=== PATIENT | female | born 1990 | race Caucasian/White ===

== ENCOUNTER → 2017-07-15 | Outpatient (CLI) | payer BC | END | disposition home or self-care (01) | LOC: C.LAB1850 12:55 | PROVIDERS: ATTEND Obstetrics & Gynecology | DX: Z34.02 Encounter for supervision of normal first pregnancy, second trimester (principal); N76.0 Acute vaginitis ==

== ENCOUNTER → 2017-08-26 | Outpatient (CLI) | payer BC, OTHER ==
[2017-08-26 12:28] LABS: HEMATOCRIT 33.2 % (37-47); HEMOGLOBIN 11.5 g/dL (12.0-16.0)
== END | disposition home or self-care (01) ==
LOC: C.LAB1850 11:12
PROVIDERS: ATTEND Obstetrics & Gynecology
DX: Z34.03 Encounter for supervision of normal first pregnancy, third trimester (principal)

== ENCOUNTER 2017-10-07 11:10 | Outpatient (CLI) | payer OTHER ==
[2017-10-07 11:41] LABS: BASO % 0.2 %; BASO ABS # 0.02 K/uL (0-0.2); EOS % 1.9 %; EOS ABS # 0.18 K/uL (0-0.5); HEMATOCRIT 34.1 % (37-47); IG# 0.09 K/uL (0.00-0.02); LYMPH % 18.9 %; LYMPH ABS # 1.77 K/uL (1.2-3.4); MEAN CELL VOLUME 85.7 fL (80-100); MEAN CORPUSCULAR HEMOGLOBIN 30.2 pg (25-34); MEAN PLATELET VOLUME 9.8 fL (7.4-10.4); MONO ABS # 0.66 K/uL (0.11-0.59); NEUT ABS # 6.66 K/uL (1.4-6.5); PLATELET COUNT 173 K/uL (130-400); RED CELL DISTRIBUTION WIDTH CV 12.6 % (11.5-14.5); RED CELL DISTRIBUTION WIDTH SD 39.4 fL (36.4-46.3); WHITE BLOOD COUNT 9.38 K/uL (4.8-10.8)
[2017-10-07 11:47] LABS: MEAN CORPUSCULAR HGB CONC 35.2 g/dl (32-36)
[2017-10-07 12:08] LABS: ALBUMIN 2.6 gm/dl (3.4-5.0); ALT/SGPT 18 U/L (12-78); AST/SGOT 19 U/L (15-37); URIC ACID 4.7 mg/dl (2.6-7.2)
[2017-10-07 12:11] LABS: ALKALINE PHOSPHATASE 128 U/L (45-117); TOTAL PROTEIN 6.6 gm/dl (6.4-8.2)
[2017-10-07 12:53] LABS: INR < 0.8 (0.9-1.1)
== END 2017-10-07 13:37 | disposition home or self-care (01) ==
LOC: C.OPB 11:10 → C.LD 11:11 → C.OPB 13:37
PROVIDERS: ATTEND Obstetrics & Gynecology
DX: O99.89 Other specified diseases and conditions complicating pregnancy, childbirth and the puerperium (principal); R03.0 Elevated blood-pressure reading, without diagnosis of hypertension; O12.13 Gestational proteinuria, third trimester; Z3A.34 34 weeks gestation of pregnancy

== ENCOUNTER → 2017-10-09 | Outpatient (CLI) | payer OTHER ==
[2017-10-09 11:03] LABS: HEMATOCRIT 34.4 % (37-47); HEMOGLOBIN 12.1 g/dL (12.0-16.0); MEAN CELL VOLUME 86.2 fL (80-100); MEAN CORPUSCULAR HEMOGLOBIN 30.3 pg (25-34); MEAN CORPUSCULAR HGB CONC 35.2 g/dl (32-36); MEAN PLATELET VOLUME 9.9 fL (7.4-10.4); PLATELET COUNT 161 K/uL (130-400); RED CELL DISTRIBUTION WIDTH CV 12.7 % (11.5-14.5); RED CELL DISTRIBUTION WIDTH SD 40.4 fL (36.4-46.3); WHITE BLOOD COUNT 8.01 K/uL (4.8-10.8)
[2017-10-09 11:25] LABS: ALBUMIN 2.5 gm/dl (3.4-5.0); ALKALINE PHOSPHATASE 129 U/L (45-117); ALT/SGPT 19 U/L (12-78); AST/SGOT 18 U/L (15-37); TOTAL PROTEIN 6.6 gm/dl (6.4-8.2); URIC ACID 4.8 mg/dl (2.6-7.2)
== END | disposition home or self-care (01) ==
LOC: C.LAB 10:34
PROVIDERS: ATTEND Obstetrics & Gynecology
DX: R03.0 Elevated blood-pressure reading, without diagnosis of hypertension (principal)

== ENCOUNTER 2017-10-18 14:58 | Inpatient (IN) | payer OTHER ==
[~2017-10-18] VITALS: Ht 165.1 cm; Wt 111.0 kg
[2017-10-18] MEDS ORDERED: LACTATED RINGER'S 1000ML 1,000 ML IV PRN (15:36)
[2017-10-18] MEDS ORDERED: MAGNESIUM SULFATE 40GM / WTR 1,000 ML IV ONE (15:40)
[2017-10-18] MEDS ORDERED: LACTATED RINGER'S 1000ML 500 ML IV PRN ×2 (15:41→18:57)
[2017-10-18] MEDS ORDERED: PATIENT'S ALLERGY INFO NEEDS ENTERED SCH (15:45)
[2017-10-18] MEDS ORDERED: PENICILLIN G POTASSIUM IV 6 MU in DEXTROSE 5% 250ML 250 ML IV ONE (15:45)
[2017-10-18] MEDS ORDERED: MAGNESIUM SULFATE 4GM / WTR 4 GM BAG ONE (16:27)
[2017-10-18 16:30] LABS: HEMATOCRIT 32.6 % (37-47); HEMOGLOBIN 11.8 g/dL (12.0-16.0); MEAN CELL VOLUME 84.2 fL (80-100); MEAN CORPUSCULAR HEMOGLOBIN 30.5 pg (25-34); MEAN CORPUSCULAR HGB CONC 36.2 g/dl (32-36); RED CELL DISTRIBUTION WIDTH CV 12.7 % (11.5-14.5); WHITE BLOOD COUNT 9.15 K/uL (4.8-10.8)
[2017-10-18 16:31] LABS: MEAN PLATELET VOLUME 10.4 fL (7.4-10.4); PLATELET COUNT 89 K/uL (130-400)
[2017-10-18 16:34] LABS: INR 0.8 (0.9-1.1); PTT PATIENT 22.2 SECONDS (21.0-31.0)
[2017-10-18 16:35] LABS: ALT/SGPT 74 U/L (12-78); AST/SGOT 56 U/L (15-37); CREATININE 0.61 mg/dl (0.60-1.20)
[2017-10-18] MEDS: OXYTOCIN 30 UNITS/500ML NSS IV PRN (16:42)
[2017-10-18] MEDS: LACTATED RINGER'S 1000ML 1,000 ML IV SCH ×2 (16:43→21:46)
[2017-10-18 16:58] LABS: BASO % 0.1 %; BASO ABS # 0.01 K/uL (0-0.2); EOS % 1.6 %; EOS ABS # 0.15 K/uL (0-0.5); IG# 0.08 K/uL (0.00-0.02); LYMPH % 13.3 %; LYMPH ABS # 1.22 K/uL (1.2-3.4); MONO % 8.5 %; MONO ABS # 0.78 K/uL (0.11-0.59); NEUT % 75.6 %; NEUT ABS # 6.91 K/uL (1.4-6.5)
[2017-10-18] MEDS ORDERED: BETAMETH SOD PHOS/ACETATE IA 6 MG/ML IM ONE (17:00)
[2017-10-18 17:29] VITALS: Ht 165.1 cm; Wt 111.0 kg
[2017-10-18] MEDS ORDERED: PRENTAB26 PO (17:31)
[2017-10-18] MEDS ORDERED: BUPIVACAINE 0.25% 30 ML VIAL ONE (18:05)
[2017-10-18] MEDS ORDERED: EpHEDrine SULFATE INJ 50 MG/ML AMP ONE (18:05)
[2017-10-18] MEDS ORDERED: FENTANYL 2MCG/ML ROPIV 1.25MG/ML 100ML BAG ONE (18:06)
[2017-10-18] MEDS ORDERED: FENTANYL CITRATE INJ 50 MCG/1 ML 2 ML VIAL ONE (18:06)
[2017-10-18] MEDS ORDERED: NALOXONE HCL INJ 1 MG in SODIUM CHLORIDE 0.9% 1000ML 1,000 ML IV PRN (18:57)
[2017-10-18] MEDS ORDERED: ONDANSETRON INJ 2 MG/ML 2 ML VIAL IV PRN (19:00)
[2017-10-18] MEDS ORDERED: EpHEDrine SULFATE INJ 50 MG/ML AMP IV PRN (19:00)
[2017-10-18] MEDS ORDERED: NALBUPHINE HCL INJ 10 MG/ML AMP IV PRN (19:00)
[2017-10-18] MEDS ORDERED: DiphenhydrAMINE HCL 50 MG/ML VIAL IV PRN (19:00)
[2017-10-18] MEDS ORDERED: NALOXONE HCL INJ 0.4 MG/1 ML VIAL/CARP IV PRN (19:00)
[2017-10-18] MEDS: FENTANYL 2MCG/ML ROPIV 1.25MG/ML 100ML BAG EPI PRN (19:12)
[2017-10-18 20:29] LABS: PTT PATIENT 22.7 SECONDS (21.0-31.0)
[2017-10-18 20:34] LABS: PLATELET COUNT 89 K/uL (130-400)
[2017-10-18 20:41] LABS: INR 0.8 (0.9-1.1)
[2017-10-18] MEDS: PENICILLIN G POTASSIUM IV 3 MU in DEXTROSE 5% 100ML 100 ML IV PRN (22:48)
[2017-10-19 00:51] LABS: HEMATOCRIT 33.8 % (37-47); MEAN CELL VOLUME 84.9 fL (80-100); MEAN CORPUSCULAR HEMOGLOBIN 30.2 pg (25-34); RED CELL DISTRIBUTION WIDTH CV 12.8 % (11.5-14.5); RED CELL DISTRIBUTION WIDTH SD 39.2 fL (36.4-46.3); WHITE BLOOD COUNT 11.99 K/uL (4.8-10.8)
[2017-10-19 00:57] LABS: PTT PATIENT 23.1 SECONDS (21.0-31.0)
[2017-10-19 01:04] LABS: INR 0.8 (0.9-1.1)
[2017-10-19 01:10] LABS: MEAN CORPUSCULAR HGB CONC 35.5 g/dl (32-36); MEAN PLATELET VOLUME 9.9 fL (7.4-10.4); PLATELET COUNT 96 K/uL (130-400)
[2017-10-19 01:18] LABS: ALT/SGPT 66 U/L (12-78); AST/SGOT 41 U/L (15-37)
[2017-10-19] MEDS: FENTANYL 2MCG/ML ROPIV 1.25MG/ML 100ML BAG EPI PRN ×4 (02:34→09:48)
[2017-10-19] MEDS: PENICILLIN G POTASSIUM IV 3 MU in DEXTROSE 5% 100ML 100 ML IV PRN ×3 (02:35→10:22)
[2017-10-19 06:26] LABS: HEMATOCRIT 32.9 % (37-47); HEMOGLOBIN 11.7 g/dL (12.0-16.0); MEAN CELL VOLUME 84.8 fL (80-100); MEAN CORPUSCULAR HEMOGLOBIN 30.2 pg (25-34); MEAN PLATELET VOLUME 10.3 fL (7.4-10.4); PLATELET COUNT 100 K/uL (130-400); RED CELL DISTRIBUTION WIDTH CV 12.9 % (11.5-14.5); RED CELL DISTRIBUTION WIDTH SD 39.4 fL (36.4-46.3); WHITE BLOOD COUNT 13.03 K/uL (4.8-10.8)
[2017-10-19 06:28] LABS: MEAN CORPUSCULAR HGB CONC 35.6 g/dl (32-36)
[2017-10-19] MEDS: LACTATED RINGER'S 1000ML 1,000 ML IV SCH (09:17)
[2017-10-19] MEDS ORDERED: CARBOPROST TROMETHAMINE 250 MCG/ML AMP ONE (11:38)
[2017-10-19] MEDS: OXYTOCIN 30 UNITS/500ML NSS IV PRN (11:53)
[2017-10-19] MEDS ORDERED: SUPERCREAM 0.870 % 15GM JAR EXT PRN (12:15)
[2017-10-19] MEDS ORDERED: OXYTOCIN 30 UNITS/500ML NSS IV PRN (12:15)
[2017-10-19] MEDS ORDERED: DIPHTHERIA/TETANUS/PERTUSSIS 0.5 ML SYR/VIAL IM. ONE ×2 (12:15→20:30)
[2017-10-19] MEDS ORDERED: OXYCODONE/ACETAMINOPHEN 5-325 TAB PO PRN (12:15)
[2017-10-19] MEDS ORDERED: CARBOPROST TROMETHAMINE 250 MCG/ML AMP IM ONE (12:15)
[2017-10-19] MEDS ORDERED: ACETAMINOPHEN 325 MG TAB PO PRN (12:15)
[2017-10-19] MEDS ORDERED: BENZOCAINE 20% AER SPR 82.5 GM CAN EXT PRN (12:15)
[2017-10-19] MEDS ORDERED: HYDROCORTISONE ACETATE 25 MG SUPP PR PRN (12:15)
[2017-10-19] MEDS ORDERED: LANOLIN OINT EXT PRN (12:15)
[2017-10-19 12:42] LABS: HEMATOCRIT 31.3 % (37-47); HEMOGLOBIN 11.2 g/dL (12.0-16.0); MEAN CELL VOLUME 84.8 fL (80-100); MEAN CORPUSCULAR HEMOGLOBIN 30.4 pg (25-34); MEAN CORPUSCULAR HGB CONC 35.8 g/dl (32-36); MEAN PLATELET VOLUME 10.1 fL (7.4-10.4); PLATELET COUNT 104 K/uL (130-400); RED CELL DISTRIBUTION WIDTH CV 12.8 % (11.5-14.5); RED CELL DISTRIBUTION WIDTH SD 39.4 fL (36.4-46.3); WHITE BLOOD COUNT 15.79 K/uL (4.8-10.8)
[2017-10-19 13:02] LABS: ALBUMIN 2.4 gm/dl (3.4-5.0); CALCIUM 6.9 mg/dl (8.5-10.1); CREATININE 0.58 mg/dl (0.60-1.20); POTASSIUM 3.7 mmol/L (3.5-5.1)
[2017-10-19 13:06] LABS: TOTAL PROTEIN 6.6 gm/dl (6.4-8.2)
[2017-10-19] MEDS ORDERED: MAGNESIUM SULFATE 40GM / WTR 1,000 ML IV SCH (14:00)
--- NOTE | 2017-10-19 14:01 | Anesthesia Procedure Note ---
Anesthesia Epidural Removal Nt Date & Time October 19, 2017 at 14:01 Vital Signs Pain Intensity: 5.0 Notes Mental Status: alert / awake / arousable, participated in evaluation Nausea / Vomiting: adequately controlled Pain: adequately controlled Airway Patency, RR, SpO2: stable & adequate BP & HR: stable & adequate Hydration State: stable & adequate Neuraxial Anesthesia: was administered, sensory block is resolving Anesthetic Complications: no major complications apparent, pt satisfied with anesthetic care Epidural: removed without complications, with tip intact Notes: Platelet count 104 prior to pulling epidural
--- NOTE | 2017-10-19 14:57 | DELIVERY SUMMARY ---
DATE OF OPERATION: 10/18/2017 PREOPERATIVE DIAGNOSES: 1. Intrauterine at 35 and 6/7th weeks. 2. Preeclampsia with severe features. 3. Unfavorable cervix. POSTOPERATIVE DIAGNOSES: 1. Intrauterine at 35 and 6/7th weeks. 2. Preeclampsia with severe features. 3. Unfavorable cervix. 4. Nonreassuring heart testing. 5. Probable placental abruption. PROCEDURES: 1. Hobson bulb for cervical ripening. 2. Pitocin augmentation. 4. Epidural anesthesia. 4. Vacuum-assisted vaginal delivery. 5. Right labial laceration with repair. 6. Magnesium sulfate for seizure prophylaxis. SURGEON: Leonie Bradford MD ANESTHESIA: Epidural. ESTIMATED BLOOD LOSS: During delivery itself 400 mL. PROCEDURE IN DETAIL: The patient presented to the office where she was seen and followed for preeclampsia. She had an induction scheduled for 10/27/2017, but had labs done on the day and found to have platelets less than 100,000 and a slight bump in one of her liver functions. She was asymptomatic and testing was good. Given this change though she qualified as preeclampsia with severe features, a decision was made to proceed with induction. A Hobson catheter was placed for cervical ripening and Pitocin augmentation was initiated. Initially, platelets were in the 80,000s, but then progressed up to 100,000, at 89,000 anesthesia was okay with placing an epidural, which was done. In the morning when I took over for the patient, she had last been checked at 2 a.m. and was found to be 5 cm dilated and 80% effaced. The baby was still high. When I checked her, she was at stretchy 8 and I performed amniotomy and guided the baby's head into the pelvis and onto the cervix. Throughout labor since about 2 a.m., the patient had had some heavier bleeding, a little bit more than what normal bloody show would entail. However, the fetus remained category 1. The patient had been started on magnesium sulfate prophylaxis and the variability was minimal to moderate, but was still having spontaneous accels. After breaking the water, the heart tones remained with a baseline of 130, but the baby started to have some decelerations that at times looked early or variable, but at other times had a concern for a late component. The variability remained minimal to moderate and the baby did have a scalp stim on vaginal exam. The patient then did progress with Pitocin at a maximum of 19 to anterior lip and +1. Once the fetus got to anterior lip and +1, we continued to have variable/potentially late decelerations and the decision was made to recheck the patient and try to reduce the lip and push the baby out. when I rechecked the patient, she was complete complete and +1 to +2 station. She was instructed in pushing. The rubber mixer was called and anesthesia was also on the floor in case the fetus did not tolerate pushing well or she made no progress with the pushing. The patient initiated pushing with very good effort and brought the baby from +2 to +3 station to +4 to +5 station. This was over the phase of the about 3 contraction. Unfortunately, the fetus did not have good recovery in between contractions and started to remain in the 60s to 70s. I made a decision since we were at +4 and TREY to proceed with a vacuum outlet assist. I consented the patient and her verbally for this instructing them that there was a possibility of scalp injury with the vacuum and possible injury to the maternal perineum. However, we were so close to vaginal delivery, I thought that we would have a more rapid delivery via vacuum-assist and trying to take the patient back to the room. Over the next contraction, the vacuum was applied and popped off x1. The pressure was no greater than 40 mmHg. During that same contraction, the vacuum was applied again and with a pressure no greater than 40 mmHg, the vertex was delivered initially in TREY position and then restituted to the ROP position. A tight nuchal cord was discovered that clamped and cut on the perineum and the rest of the baby was then delivered without difficulty. The infant was immediately taken over to the baby warmer where nursing and the rubber mixer, Dr. Forrest, was in attendance and waiting for the baby for resuscitation. Please see their notes for resuscitation. Apgars 2, 7, and 8. The placental was delivered with fundal massage and gentle traction into the vagina when I felt the cord starting to tear and therefore, I reached my hand into the vagina, grasped the placenta and delivered the rest of it. On examination of the placenta, it appeared to be intact, however, there was a large clot delivered coincidentally with the placenta. I suspect that the heavier bleeding that she had had through delivery and this clot represented of an abruption that occurred during labor. Placenta was sent for exam. Hemostasis was obtained with dilute Pitocin, fundal massage, and IM Hemabate. A right labial laceration was repaired with several interrupted sutures of 4-0 Vicryl. Mother was doing well at the end of the delivery. Blood pressure 140/77, pulse in the mid 90s. Baby was taken to the nursery for evaluation and treatment. I attest to the content of the Intraoperative Record and any orders documented therein. Any exceptions are noted below. MTDD
[2017-10-19] MEDS: IBUPROFEN 600 MG TAB PO PRN ×2 (15:44→23:25)
[2017-10-20] VITALS (7 sets, daily range): BP systolic 125–149; BP diastolic 80–89; PULSE 70–89; TEMP 36.6–37.4; O2SAT 97–98
[2017-10-20 06:24] LABS: HEMATOCRIT 27.3 % (37-47); HEMOGLOBIN 9.6 g/dL (12.0-16.0); MEAN CELL VOLUME 85.8 fL (80-100); MEAN CORPUSCULAR HEMOGLOBIN 30.2 pg (25-34); MEAN CORPUSCULAR HGB CONC 35.2 g/dl (32-36); MEAN PLATELET VOLUME 9.7 fL (7.4-10.4); PLATELET COUNT 105 K/uL (130-400); RED CELL DISTRIBUTION WIDTH SD 40.7 fL (36.4-46.3)
--- NOTE | 2017-10-20 06:57 | Progress Note ---
Subjective October 20, 2017. Subjective conversation w/ patient Ambulation: ambulating normally (catheter removed this AM - has not ambulated much as yet) Voiding: no voiding problems Diet Tolerance: Regular Diet Lochia: Moderate Feeding Type: Breast Feeding Pain: 2/10 cramping pain after Review of Systems Constitutional: No fever, No chills Respiratory: No cough Cardiac: No chest pain Abdomen: No nausea, No vomiting Objective Vital Signs Date Time Temp Pulse Resp B/P (MAP) Pulse Ox O2 Delivery O2 Flow Rate FiO2 10/20/17 04:15 37.1 83 18 141/82 (101) 10/20/17 00:05 98 Room Air 10/20/17 00:05 36.6 89 18 125/89 (101) 98 Room Air Physical Exam General Appearance: WELL-APPEARING, WD/WN, NO APPARENT DISTRESS Respiratory/Chest: lungs clear, normal breath sounds Cardiovascular: regular rate, rhythm Abdomen: soft Fundus: Firm, Non-Tender, Relation to Umbilicus (1 below) Extremities: no calf tenderness, + pedal edema Laboratory Results Last 24 Hours Test 10/19/17 11:28 10/19/17 12:22 10/20/17 05:55 Cord Arterial Blood pH 7.23 Cord Arterial Blood PCO2 58 mmHg Cord Arterial Blood PO2 20 mmHg Cord Arterial Blood HCO3 24 mmol/L Cord Arterial Bld Oxygen Saturation < 60.0 % Cord Arterial Blood Base Excess -5.0 mEq/L Cord Venous Blood pH 7.24 Cord Venous Blood PCO2 57 mmHg Cord Venous Blood PO2 17 mmHg Cord Venous Blood HCO3 24 mmol/L Cord Venous Blood Oxygen Saturation < 60.0 % Cord Venous Blood Base Excess -4.9 mEq/L White Blood Count 15.79 K/uL 12.60 K/uL Red Blood Count 3.69 M/uL 3.18 M/uL Hemoglobin 11.2 g/dL 9.6 g/dL Hematocrit 31.3 % 27.3 % Mean Corpuscular Volume 84.8 fL 85.8 fL Mean Corpuscular Hemoglobin 30.4 pg 30.2 pg Mean Corpuscular Hemoglobin Concent 35.8 g/dl 35.2 g/dl RDW Standard Deviation 39.4 fL 40.7 fL RDW Coefficient of Variation 12.8 % 13.0 % Platelet Count 104 K/uL 105 K/uL Mean Platelet Volume 10.1 fL 9.7 fL Sodium Level 132 mmol/L Potassium Level 3.7 mmol/L Chloride Level 103 mmol/L Carbon Dioxide Level 20 mmol/L Anion Gap 9.0 mmol/L Blood Urea Nitrogen 10 mg/dl Creatinine 0.58 mg/dl Est Creatinine Clear Calc Drug Dose 182.4 ml/min Estimated GFR () 147.4 Estimated GFR (Non- 127.2 BUN/Creatinine Ratio 17.5 Random Glucose 97 mg/dl Calcium Level 6.9 mg/dl Total Bilirubin 0.3 mg/dl Aspartate Amino Transf (AST/SGOT) 31 U/L Alanine Aminotransferase (ALT/SGPT) 53 U/L Alkaline Phosphatase 152 U/L Total Protein 6.6 gm/dl Albumin 2.4 gm/dl Globulin 4.2 gm/dl Albumin/Globulin Ratio 0.6 Assessment and Plan Post- Day#: 1 Continue Routine Care: 27F s/p induced vaginal delivery w/vacuum for pre-eclampsia with severe features day 1 - A+, Rubella Immune, GBS -ve - pt doing well clinically - Vital Signs reviewed -> BP borderline at 141/82 this AM, will continue to monitor throughout the day - Hemoglobin Reviewed. 12 -> 9.6 - platelet count improving from 89 to 105 - Encourage Ambulation, monitor and control pain with Motrin PRN - Encourage Breast Feeding - pt will need f/u in clinic 72 hours after d/c for repeat BP check Resident Physician Supervision Note: I interviewed and examined the patient. Discussed with Dr. Curtis and agree with findings and plan as documented in the note. Any exceptions or clarifications are listed here: Doing well. No s/s of worsening disease. BP improving. WAs on Mag til MN last night. Catheter out early this am. Encourage ambulation and void. Documented By: Leonie Bradford Resident Tracking Resident Involvement: Resident Care Provided Care Provided: OB Delivery
--- NOTE | 2017-10-20 07:11 | Discharge Instructions ---
Discharge Instructions Date of Service October 20, 2017. Admission Reason for Admission: Pre Eclampsia Discharge Discharge Diagnosis / Problem: Vaginal Delivery Discharge Goals Goal(s): Routine recovery after delivery Medications Continue Dispensed Medications: supercream, dermaplast, tucks, lansinoh Activity Recommendations Activity Limitations: per Instructions/Follow-up section . Instructions / Follow-Up Instructions / Follow-Up You will need to be seen in the Obstetrics office 72 hours after discharge for a recheck of your blood pressure. ACTIVITY RECOMMENDATIONS: * Gradual return to full activity over the next 2-3 weeks. * No lifting - nothing heavier than baby over the next 2-3 weeks. * Do not engage in vigorous exercise, sexual activity or sports until cleared by your physician. * Do not drive or operate any motorized equipment until cleared by your physician. * You may shower/bathe daily. MEDICATIONS: For discomfort or pain, you may use Acetaminophen (Tylenol), Ibuprofen (Advil), or Naproxen (Aleve) following the package directions. For constipation you may use Colace following the package directions. BREAST CARE: If you are not breast feeding: * Wear a supportive bra 24 hours a day for one to two weeks. * Avoid stimulating your breasts and nipples as much as possible during the first few weeks after delivery. * When taking a shower, have the warm water hit your back, not breasts. * When your breasts feel full, apply ice packs. Usually three to four times a day helps ease the discomfort. * Take a mild pain medication (Tylenol / Motrin) when you are uncomfortable. If breast feeding: * Use breast milk to lubricate nipples. Lansinoh cream may be used for sore nipples. You do not need to remove cream prior to breast feeding. If using a different brand of cream, check the label for directions regarding removal of cream prior to nursing. * Wear a supportive bra. * If having problems with breasts or breast feeding, call a [employer] commerce consultant or your health care provider. EPISIOTOMY CARE: After delivery, if you have an episiotomy (stitches), the following steps will ease discomfort and aid healing. * For the first 24 hours after delivery, place ice packs next to your episiotomy to help reduce swelling. * After the first 24 hour-period, sitz baths, either portable or in the tub, are suggested. A shower with a shower arm sprayed over the episiotomy may be comforting. * Mary care should be done after each voiding and bowel movement. Squirt warm water from a plastic bottle over the perineum (region of the body between the anus and urinary opening) and pat dry. * Use Dermoplast to ease discomfort. Shake container. [place] directly over the episiotomy. Place a Tucks on a clean sanitary pad next to your episiotomy. SPECIAL CARE INSTRUCTIONS: When you are discharged from the hospital, it is important for you to follow the instructions listed below: * During the first week at home, you should be able to care for yourself and your baby. In addition, the usual light household activities are encouraged. * Limit your activities to the way you feel. Do not try to clean the house or move furniture. Be sensible. * If you actively engage in sports and have done so up until the time of your delivery, you may resume these activities as soon as you feel able. This may take up to one month or even longer. Use good judgment. * Continue to take your vitamins for at least six weeks after the of your baby. * Your diet need not be limited unless you were on a special diet before your delivery. Breast-feeding mothers need around 2500 calories per day and at least 64-80 ounces of fluid per day (8 to 10 glasses). * You should eat foods from the four major food groups. Crash diets or fad diets are to be avoided. Eating lean meats, fresh fruits and vegetables, low-fat dairy products, high fiber foods and a regular exercise program, will help you get back to your pre- weight without putting your health at risk. * Constipation is sometimes a problem after delivery. Take a mild laxative as needed. If breast feeding, Milk of Magnesia is acceptable to use. You may use a suppository or Fleets enema if no episiotomy. * A daily shower or tub bath is suggested. Be sure to thoroughly and gently dry the perineum. * A bloody vaginal discharge will usually continue until around four weeks post . A small amount of bleeding may continue for as long as six weeks. Vaginal discharge changes from the bright red bleeding after delivery to pink then brownish and finally yellowish-pink before becoming white and disappearing. * Bleeding may increase with activity. Your first period may come in 4-8 weeks. If you are breast feeding, your period may be delayed even longer. * [place] (sex) can begin whenever both you and your partner feel comfortable and do not have any form of genital infection. It is recommended that you wait at least six weeks for internal and external healing to occur. If you have questions, please talk to your health care practitioner. A condom should be used to prevent infection and . * Foreplay, gentle intercourse and lubrication is very important the first several times to prevent pain. A water-based lubricant such as K-Y jelly or Astroglide may be used. * If you have RH negative blood and your baby is RH positive, you will receive RHOGAM by injection prior to discharge. The nurse will give you a card to keep with you that has the date and place that you received RHOGAM after delivery. * During your care, you had a Rubella screen done to check for the presence of rubella antibodies in your blood. If your test was negative, you will receive a Rubella vaccine prior to discharge. This vaccine may cause a fever, soreness at the injection site and flu-like symptoms. If these symptoms persist, notify your health care practitioner. is not advised for one month after a Rubella vaccine. * Verbalizes understanding of car seat law as reviewed with patient nursing. * Car Seat hand-out given and reviewed with patient by nursing. * Shaken baby information reviewed with patient by nursing. Call you doctor if: * Heavy bleeding (saturating several pads an hour) or passing clots the size of your fist. * A fever >101 degrees F (38.3 degrees C) on two occasions four hours apart and /or chills. * Unusual pain in the pelvic or vaginal areas. * "Baby Blues" lasting longer than two weeks. If you have any questions or concerns, call your health care practitioner at . FOLLOW UP VISIT: * Please call the office at to schedule a 6 week examination. It is important you keep this appointment. It is important for you to make arrangements for either yearly or twice yearly check-ups thereafter. Current Hospital Diet Patient's current hospital diet: Regular OB Diet Discharge Diet Recommended Diet: Regular Diet Pending Studies Studies pending at discharge: no Medical Emergencies . Who to Call and When: Medical Emergencies: If at any time you feel your situation is an emergency, please call 911 immediately. . Non-Emergent Contact Non-Emergency issues call your: Primary Care Provider . . "Provider Documentation" section prepared by Josh Curtis. .
[2017-10-20] MEDS: PRENATAL VITAMIN TAB PO SCH (08:36)
--- NOTE | 2017-10-20 09:21 | Discharge Instructions ---
Discharge Instructions Date of Service October 20, 2017. Admission Reason for Admission: Pre Eclampsia Discharge Discharge Diagnosis / Problem: recovery from normal delivery & pre-eclampsia Discharge Goals Goal(s): Routine recovery after delivery Medications Continue Dispensed Medications: supercream, dermaplast, tucks, lansinoh Activity Recommendations Activity Limitations: per Instructions/Follow-up section . Instructions / Follow-Up Instructions / Follow-Up ACTIVITY RECOMMENDATIONS: * Gradual return to full activity over the next 2-3 weeks. * No lifting - nothing heavier than baby over the next 2-3 weeks. * Do not engage in vigorous exercise, sexual activity or sports until cleared by your physician. * Do not drive or operate any motorized equipment until cleared by your physician. * You may shower/bathe daily. MEDICATIONS: For discomfort or pain, you may use Acetaminophen (Tylenol), Ibuprofen (Advil), or Naproxen (Aleve) following the package directions. For constipation you may use Colace following the package directions. BREAST CARE: If you are not breast feeding: * Wear a supportive bra 24 hours a day for one to two weeks. * Avoid stimulating your breasts and nipples as much as possible during the first few weeks after delivery. * When taking a shower, have the warm water hit your back, not breasts. * When your breasts feel full, apply ice packs. Usually three to four times a day helps ease the discomfort. * Take a mild pain medication (Tylenol / Motrin) when you are uncomfortable. If breast feeding: * Use breast milk to lubricate nipples. Lansinoh cream may be used for sore nipples. You do not need to remove cream prior to breast feeding. If using a different brand of cream, check the label for directions regarding removal of cream prior to nursing. * Wear a supportive bra. * If having problems with breasts or breast feeding, call a energy consultant or your health care provider. EPISIOTOMY CARE: After delivery, if you have an episiotomy (stitches), the following steps will ease discomfort and aid healing. * For the first 24 hours after delivery, place ice packs next to your episiotomy to help reduce swelling. * After the first 24 hour-period, sitz baths, either portable or in the tub, are suggested. A shower with a shower arm sprayed over the episiotomy may be comforting. * Mary care should be done after each voiding and bowel movement. Squirt warm water from a plastic bottle over the perineum (region of the body between the anus and urinary opening) and pat dry. * Use Dermoplast to ease discomfort. Shake container. [place] directly over the episiotomy. Place a Tucks on a clean sanitary pad next to your episiotomy. SPECIAL CARE INSTRUCTIONS: When you are discharged from the hospital, it is important for you to follow the instructions listed below: * During the first week at home, you should be able to care for yourself and your baby. In addition, the usual light household activities are encouraged. * Limit your activities to the way you feel. Do not try to clean the house or move furniture. Be sensible. * If you actively engage in sports and have done so up until the time of your delivery, you may resume these activities as soon as you feel able. This may take up to one month or even longer. Use good judgment. * Continue to take your vitamins for at least six weeks after the of your baby. * Your diet need not be limited unless you were on a special diet before your delivery. Breast-feeding mothers need around 2500 calories per day and at least 64-80 ounces of fluid per day (8 to 10 glasses). * You should eat foods from the four major food groups. Crash diets or fad diets are to be avoided. Eating lean meats, fresh fruits and vegetables, low-fat dairy products, high fiber foods and a regular exercise program, will help you get back to your pre- weight without putting your health at risk. * Constipation is sometimes a problem after delivery. Take a mild laxative as needed. If breast feeding, Milk of Magnesia is acceptable to use. You may use a suppository or Fleets enema if no episiotomy. * A daily shower or tub bath is suggested. Be sure to thoroughly and gently dry the perineum. * A bloody vaginal discharge will usually continue until around four weeks post . A small amount of bleeding may continue for as long as six weeks. Vaginal discharge changes from the bright red bleeding after delivery to pink then brownish and finally yellowish-pink before becoming white and disappearing. * Bleeding may increase with activity. Your first period may come in 4-8 weeks. If you are breast feeding, your period may be delayed even longer. * [place] (sex) can begin whenever both you and your partner feel comfortable and do not have any form of genital infection. It is recommended that you wait at least six weeks for internal and external healing to occur. If you have questions, please talk to your health care practitioner. A condom should be used to prevent infection and . * Foreplay, gentle intercourse and lubrication is very important the first several times to prevent pain. A water-based lubricant such as K-Y jelly or Astroglide may be used. * If you have RH negative blood and your baby is RH positive, you will receive RHOGAM by injection prior to discharge. The nurse will give you a card to keep with you that has the date and place that you received RHOGAM after delivery. * During your care, you had a Rubella screen done to check for the presence of rubella antibodies in your blood. If your test was negative, you will receive a Rubella vaccine prior to discharge. This vaccine may cause a fever, soreness at the injection site and flu-like symptoms. If these symptoms persist, notify your health care practitioner. is not advised for one month after a Rubella vaccine. * Verbalizes understanding of car seat law as reviewed with patient nursing. * Car Seat hand-out given and reviewed with patient by nursing. * Shaken baby information reviewed with patient by nursing. Call you doctor if: * IF YOU HAVE ANY NUMBNESS/ TINGLING IN YOUR LEGS, AND/OR LOSS OF BOWEL OR BLADDER CONTROL CALL THE OFFICE & THEN PROCEED TO THE ER. * Heavy bleeding (saturating several pads an hour) or passing clots the size of your fist. * A fever >101 degrees F (38.3 degrees C) on two occasions four hours apart and /or chills. * Unusual pain in the pelvic or vaginal areas. * "Baby Blues" lasting longer than two weeks. If you have any questions or concerns, call your health care practitioner at . FOLLOW UP VISIT: * Please call the office at to schedule a 6 week examination. It is important you keep this appointment. It is important for you to make arrangements for either yearly or twice yearly check-ups thereafter. Current Hospital Diet Patient's current hospital diet: Regular OB Diet Discharge Diet Recommended Diet: Regular OB Diet Pending Studies Studies pending at discharge: no Medical Emergencies . Who to Call and When: Medical Emergencies: If at any time you feel your situation is an emergency, please call 911 immediately. . Non-Emergent Contact Non-Emergency issues call your: Matrix Repairer . . "Provider Documentation" section prepared by Adelina Vazquez .
[2017-10-20] MEDS: IBUPROFEN 600 MG TAB PO PRN (20:34)
--- NOTE | 2017-10-21 06:50 | Progress Note ---
Subjective October 21, 2017. Subjective conversation w/ patient, physical exam, lab review Ambulation: ambulating normally Voiding: no voiding problems Diet Tolerance: Regular Diet Lochia: Small Objective Vital Signs Date Time Temp Pulse Resp B/P (MAP) Pulse Ox O2 Delivery O2 Flow Rate FiO2 10/20/17 23:45 Room Air 10/20/17 23:45 37.1 76 20 130/80 (97) Room Air 10/20/17 19:30 37.2 70 20 148/84 (105) Room Air 10/20/17 15:30 Room Air 10/20/17 15:30 37.4 81 20 149/85 (106) Room Air 10/20/17 12:14 37.3 86 18 142/87 (105) 97 Room Air 10/20/17 09:15 98 Room Air 10/20/17 09:15 36.9 77 18 134/84 (101) 98 Room Air Physical Exam General Appearance: WELL-APPEARING Abdomen: non tender Fundus: Firm Extremities: no calf tenderness Assessment and Plan Post- Day#: 2 Continue Routine Care: home
[2017-10-21] MEDS: IBUPROFEN 600 MG TAB PO PRN ×2 (06:53→16:08)
[2017-10-21 08:00] VITALS: BP 133/82; PULSE 76; TEMP 37.2
[2017-10-21] MEDS: PRENATAL VITAMIN TAB PO SCH (08:42)
[2017-10-21 15:15] VITALS: BP 148/86; PULSE 79; TEMP 37.5
[2017-10-21 18:48] VITALS: TEMP 37.1
[2017-10-21 19:26] VITALS: BP_DIAS 86; PULSE 79; TEMP 37.1
== END 2017-10-21 19:27 | disposition home or self-care (01) | DRG 774 ==
LOC: C.LD 14:58 → C.OPB 14:58 → C.LD 15:41 → C.OBG 10-20 00:09
PROVIDERS: ADMIT Obstetrics & Gynecology; ATTEND Obstetrics & Gynecology
PROC: 10D07Z6 Extraction of Products of Conception, Vacuum, Via Natural or Artificial Opening (ICD-10-PCS; principal; 2017-10-18)
PROC: 0HQ9XZZ Repair Perineum Skin, External Approach (ICD-10-PCS; principal; 2017-10-18)
PROC: 3E0P7GC Introduction of Other Therapeutic Substance into Female Reproductive, Via Natural or Artificial Opening (ICD-10-PCS; 2017-10-18)
DX: O14.14 Severe pre-eclampsia complicating childbirth (principal); O45.93 Premature separation of placenta, unspecified, third trimester; O69.1XX0 Labor and delivery complicated by cord around neck, with compression, not applicable or unspecified; O77.8 Labor and delivery complicated by other evidence of fetal stress; O60.14X0 Preterm labor third trimester with preterm delivery third trimester, not applicable or unspecified; O70.0 First degree perineal laceration during delivery; Z3A.35 35 weeks gestation of pregnancy; Z37.0 Single live birth

== ENCOUNTER → 2017-10-18 | Outpatient (CLI) | payer OTHER ==
[~2017-10-18] MED LIST: PRENTAB26 PO
== END | disposition home or self-care (01) ==
LOC: C.LABSPEC 13:17
PROVIDERS: ATTEND Obstetrics & Gynecology
DX: Z34.03 Encounter for supervision of normal first pregnancy, third trimester (principal)

== ENCOUNTER → 2017-10-18 | Outpatient (CLI) | payer OTHER ==
[2017-10-18 12:42] LABS: HEMATOCRIT 34.1 % (37-47); MEAN CELL VOLUME 85.9 fL (80-100); MEAN CORPUSCULAR HEMOGLOBIN 30.2 pg (25-34); MEAN CORPUSCULAR HGB CONC 35.2 g/dl (32-36); RED CELL DISTRIBUTION WIDTH CV 12.8 % (11.5-14.5); RED CELL DISTRIBUTION WIDTH SD 40.2 fL (36.4-46.3); WHITE BLOOD COUNT 10.84 K/uL (4.8-10.8)
[2017-10-18 13:00] LABS: ALBUMIN 2.5 gm/dl (3.4-5.0); ALT/SGPT 71 U/L (12-78); AST/SGOT 56 U/L (15-37); BLOOD UREA NITROGEN 12 mg/dl (7-18); CALCIUM 8.9 mg/dl (8.5-10.1); CARBON DIOXIDE 24 mmol/L (21-32); CREATININE 0.65 mg/dl (0.60-1.20); GLUCOSE 79 mg/dl (70-99); POTASSIUM 4.3 mmol/L (3.5-5.1); SODIUM 137 mmol/L (136-145)
[2017-10-18 13:03] LABS: ALKALINE PHOSPHATASE 148 U/L (45-117); TOTAL PROTEIN 6.7 gm/dl (6.4-8.2)
[2017-10-18 13:07] LABS: PLATELET COUNT 95 K/uL (130-400)
== END | disposition home or self-care (01) ==
LOC: C.LAB1850 10:42
PROVIDERS: ATTEND Obstetrics & Gynecology
DX: O14.03 Mild to moderate pre-eclampsia, third trimester (principal)

== ENCOUNTER 2019-05-05 07:31 | Inpatient (IN) ==
[2019-05-05] MEDS ORDERED: OXYTOCIN 30 UNITS/500 ML BAG IV PRN ×3 (08:05→19:12)
[2019-05-05 08:38] LABS: Hematocrit (blood only) 33.7 % (37-47); Hemoglobin 11.7 g/dL (12.0-16.0); Mean Corpuscular Hemoglobin 30.5 pg (25-34); Mean Corpuscular Volume 87.8 fL (80-100); Mean Platelet Volume 9.9 fL (7.4-10.4); Platelet Count 155 K/uL (130-400); RDW Coefficient of Variation 13.2 % (11.5-14.5); RDW Standard Deviation 42.2 fL (36.4-46.3); Red Blood Count 3.84 M/uL (4.2-5.4); White Blood Count 8.19 K/uL (4.8-10.8)
[2019-05-05 08:41] LABS: Mean Corpuscular Hgb Conc 34.7 g/dL (32-36)
--- NOTE | 2019-05-05 08:49 | History & Physical Report ---
Date of Service May 05, 2019 Assessment & Plan (1) Mild pre-eclampsia, antepartum: with Mild Pre-eclampsia -Patient is a 29 at 37w 1d by LMP -GBS -, Blood Type A+ -Pain plan with epidural -IOL with pitocin 1 increasing by 2 -Plan for (2) : History of Present Illness Chief Complaint: IOL Primary Care Provider: NO PCP Patient is a 29 at 37w 1d by certain LMP 08/18/18 with [facility] 05/25/19 presenting today for IOL secondary to mild pre-eclampsia. She had a Hobson bulb the previous night that was removed this AM. Her has been complicated by mild pre-eclampsia. She has been attending OB appointments appropriately. She notes that she feels baby moving, but has not noticed any obvious contractions. She denies any gush of fluid or bloody show as well. Labs -Blood type - A+ -Antibody screen - Negative -Hg - 11.7 -Hct - 33.7% -Wbc - 8.19 -Plt - 155 -Rubella - Immune -VDRL/RPR - Nonreactive -Gonorrhea - negative -Chlamydia - negative -HIV - negative -HbSAg - negative -GBS - Negative -Glucose tolerance x 2 - passed Allergies Allergy/AdvReac Type Severity Reaction Status Date / Time No Known Drug Allergies Allergy Unknown Verified 05/04/19 20:17 Home Medications Home Medications Medication Instructions Recorded Confirmed Type aspirin 81 mg tablet,delayed 81 mg PO DAILY 01/13/19 05/05/19 History release prenat.vits,emily,mbk-occc-hlere 1 tab PO DAILY 01/13/19 05/05/19 History Patient History Social History (Updated 01/26/19 @ 07:26 by Meagan Singh) Preferred Language: Andorran Communication Ability: Effective [employer] Required: No Beliefs That Will Affect Care: None marital status: Current Living Situation: Spouse and Family Other Information That Helps Us Care for You: No Feels Safe at Home: Yes Safety Concerns: Feels Safe At This Time Smoking Status: Never smoker Hx Alcohol Use: No Hx Substance Use: No Review of Systems no fever, no chills, no fatigue and no weakness no eye pain and no photophobia no dizziness no cough, no dyspnea and no pain on inspiration + edema; no chest pain, no palpitations and no calf pain no abdominal pain, no nausea and no vomiting no dysuria Physical Exam Constitutional: WD/WN, vitals as above Eyes: PERRL, conjunctivae normal, anicteric sclerae ENMT: external ear and nose normal, oropharynx normal Neck: trachea midline, no thyromegaly Respiratory: normal respiratory effort, lungs clear to auscultation Cardiovascular: Rate/Rhythm: regular rate and regular rhythm Heart Sounds: normal S1 and normal S2; no gallop, no murmur and no cardiac rub Extremities: + edema (+1); no calf tenderness Gastrointestinal (Abdomen): Inspection/Auscultation: abdomen normal to inspection Gravid Uterus Term Fundal Height FHT 153 vertex No palpable contractions EFW 6.5lbs Musculoskeletal: no cyanosis or clubbing, extremities motor strength 5/5 Skin: no rashes, warm and dry Neurologic: patellar DTR's 2+ bilat, sensation intact Psychiatric: A+Ox3, euthymic affect Genitourinary: Manual OB Exam: + cervical dilation 3 cm, + cervical effacement 60% and + station -2 Cervical exam as performed by Dr. Ledezma Results & Data Vital Signs (Past 12 Hours) Vital Signs Temp Pulse Resp BP 05/05/19 07:50 86 132/76 05/05/19 07:43 36.6 C 86 20 132/76 Code Status & VTE Plan VTE Prophylaxis Plan VTE Prophylaxis will be ordered: No Monitoring External Monitor FHR 153, Category 1 Supervising Physician Co-Signing Physician Notes Resident Physician Supervision Note: I was present with during the history and exam. I discussed the case with the resident and agree with the findings and plan as documented in the note. Any exceptions or clarifications are listed here: [None] Documented By: Adelina Vera MD, FACOG Resident Activity Tracking Resident Involvement: Resident Care Provided Care Provided: OB Delivery
[2019-05-05 08:54] LABS: INR 0.9 (0.9-1.1); Partial Thromboplastin Ratio 0.8
[2019-05-05] MEDS: LACTATED RINGER'S 1,000 ML IV PRN ×2 (08:55→11:59)
[2019-05-05 08:57] LABS: Est GFR (Non-African American) 123.4
[2019-05-05] MEDS ORDERED: fentaNYL citrate 100 MCG/2 ML VIAL ONE ×2 (11:23→12:07)
[2019-05-05] MEDS ORDERED: fentaNYL 2MCG/ML ROPIV 1.25MG/ML 100 ML BAG EPI ONE (11:23)
[2019-05-05] MEDS ORDERED: ePHEDrine sulfate 50 MG/ML AMP ONE (11:23)
[2019-05-05] MEDS ORDERED: BUPIVACAINE 0.25% 30 ML VIAL ONE ×2 (11:23→13:42)
--- NOTE | 2019-05-05 11:32 | Anesthesiology Consultation ---
Date of Service May 05, 2019 Assessment & Plan Chart Review Chart Review: Acceptable Risk for Labor Epidural ASA ASA2 Proposed Anesthesia Anesthesia Type: Labor Epidural Risk / Benefits Reviewed With: PT / POA / Parent / Guardian, Accepts Plan and Informed Consent Obtained History Height/Weight Height: 5 ft 4 in Weight: 104.78 kg Allergies Allergy/AdvReac Type Severity Reaction Status Date / Time No Known Drug Allergies Allergy Unknown Verified 05/04/19 20:17 Medications Home Medications Medication Instructions Recorded Confirmed Last Taken aspirin 81 mg tablet,delayed 81 mg PO DAILY 01/13/19 05/05/19 05/04/19 02:20 release prenat.vits,emily,bty-qdhk-dawwv 1 tab PO DAILY 01/13/19 05/05/19 05/04/19 22:00 Active Medications Generic Name Dose Route Start Last Admin Trade Name Freq PRN Reason Stop Dose Admin Lactated Ringer's 1,000 mls @ 125 mls/hr 05/05/19 08:05 05/05/19 11:59 Lr IV 06/04/19 08:04 999 mls/hr .Q8H PRN Administration L&D Protocol Protocol Oxytocin 30 units in 500 mls @ 5 mls/hr 05/05/19 08:16 05/05/19 10:00 Pitocin IV 05/07/19 08:15 0.3 units/hr .Q24H PRN 5 mls/hr Labor Induction/Augmentation Titration Protocol 0.3 UNITS/HR Exercise / Class Metabolic Activity II 4-5 Yardwork/Stairs/Walk up hill Past Anesthesia History No Hx of Anesthesia Complications and No Family Hx of Anesthesia Complications History of PONV No Hx of PONV and No Hx of Motion Sickness Social History Smoking Status: Never smoker Hx Alcohol Use: No Hx Substance Use: No Physical Exam Vital Signs Last Vital Signs Temp 36.9 C 05/05/19 12:10 Pulse 80 05/05/19 12:54 Resp 20 05/05/19 12:10 BP 115/67 05/05/19 12:53 Pulse Ox 95 05/05/19 12:54 Testing Laboratory Results 05/05/19 08:28 05/05/19 08:28 PT 9.0 Seconds (9.0-12.0) 05/05/19 08:28 INR 0.9 (0.9-1.1) 05/05/19 08:28 APTT 23.0 Seconds (21.0-31.0) 05/05/19 08:28
[2019-05-05] MEDS ORDERED: NALOXONE HCL 0.4 MG/1 ML VIAL/CARP IV PRN (11:35)
[2019-05-05] MEDS ORDERED: NALOXONE HCL 1 MG in SODIUM CHLORIDE 0.9% 1000ML 1,000 ML IV PRN (11:35)
[2019-05-05] MEDS ORDERED: ePHEDrine sulfate 50 MG/ML AMP IV PRN (11:35)
[2019-05-05] MEDS ORDERED: NALBUPHINE HCL INJ 10 MG/ML AMP IV PRN (11:35)
[2019-05-05] MEDS ORDERED: DiphenhydrAMINE HCL 50 MG/ML VIAL IV PRN (11:35)
[2019-05-05] MEDS ORDERED: ONDANSETRON INJ 2 MG/ML 2 ML VIAL IV PRN (11:35)
[2019-05-05] MEDS ORDERED: fentaNYL 2MCG/ML ROPIV 1.25MG/ML 100 ML BAG EPI PRN (11:35)
--- NOTE | 2019-05-05 18:46 | Delivery Summary ---
Vaginal Delivery Summary Date of Service May 05, 2019 Induction at 37 weeks for preeclampsia without severe features. Group B strep negative patient was given cervical Hobson and then Pitocin induction eventually received an epidural and artificial rupture of membranes and delivered a baby later that evening in occiput anterior position fluid was clear there was no nuchal cord baby was delivered by gentle traction no excessive force live vigorous male cord clamped and cut cord gases obtained cord blood obtained placenta removed with gentle traction IV Pitocin was started there was no tearing estimated blood loss 150 mL sponge and estimate counts correct
[2019-05-05] MEDS ORDERED: BENZOCAINE 20% AER SPR 82.5 GM CAN EXT PRN (19:12)
[2019-05-05] MEDS ORDERED: ACETAMINOPHEN 325 MG TAB PO PRN (19:12)
[2019-05-05] MEDS ORDERED: OXYCODONE/ACETAMINOPHEN 5mg/325mg TAB PO PRN (19:12)
[2019-05-05] MEDS ORDERED: BISACODYL 10 MG SUPP PR PRN (19:12)
[2019-05-05] MEDS ORDERED: SUPERCREAM 0.870% 15 GM JAR EXT PRN (19:12)
[2019-05-05] MEDS ORDERED: DIPHTHERIA/TETANUS/PERTUSSIS 0.5 ML SYR/VIAL IM ONE (19:12)
[2019-05-05] MEDS ORDERED: HYDROCORTISONE ACETATE 25 MG SUPP PR PRN (19:12)
--- NOTE | 2019-05-05 19:12 | Anesthesiology Progress Note ---
Date of Service May 05, 2019 Anesthesia Post Procedure Vital Signs Vital Signs: Temp Pulse Resp BP Pulse Ox 05/05/19 19:04 88 129/58 L 05/05/19 18:48 88 125/62 05/05/19 18:44 88 124/61 05/05/19 18:35 110 H 97 05/05/19 18:33 86 123/66 05/05/19 18:32 99 H 84 L 05/05/19 18:30 102 H 98 05/05/19 18:25 110 H 95 05/05/19 18:20 106 H 97 05/05/19 18:19 84 129/79 05/05/19 18:15 98 H 96 05/05/19 18:10 96 H 95 05/05/19 18:05 93 H 95 05/05/19 18:04 102 H 122/64 05/05/19 18:00 80 95 05/05/19 17:55 83 94 05/05/19 17:50 99 H 95 05/05/19 17:48 105 H 117/64 05/05/19 17:45 89 95 05/05/19 17:40 93 H 95 05/05/19 17:35 100 H 96 05/05/19 17:34 78 108/56 L 05/05/19 17:30 80 95 05/05/19 17:26 95 H 84 L 05/05/19 17:25 102 H 94 05/05/19 17:20 90 95 05/05/19 17:18 87 111/58 L 05/05/19 17:15 97 H 95 05/05/19 17:10 98 H 95 05/05/19 17:05 87 95 05/05/19 17:03 82 121/65 05/05/19 17:02 95 H 87 L 05/05/19 17:00 86 95 05/05/19 16:55 82 94 05/05/19 16:50 77 94 05/05/19 16:48 74 114/61 05/05/19 16:45 80 94 05/05/19 16:40 76 94 05/05/19 16:35 81 94 05/05/19 16:34 76 112/62 05/05/19 16:30 74 95 05/05/19 16:25 76 95 05/05/19 16:20 75 94 05/05/19 16:18 80 108/62 05/05/19 16:15 73 96 05/05/19 16:10 36.7 C 80 20 97 05/05/19 16:05 73 97 05/05/19 16:04 75 119/69 05/05/19 16:00 72 96 05/05/19 15:55 80 96 05/05/19 15:50 80 96 05/05/19 15:49 82 120/69 05/05/19 15:45 81 96 05/05/19 15:40 91 H 96 05/05/19 15:35 71 95 05/05/19 15:33 73 117/72 05/05/19 15:30 85 96 05/05/19 15:25 78 96 05/05/19 15:20 79 96 05/05/19 15:18 78 122/71 05/05/19 15:15 83 96 05/05/19 15:10 82 96 05/05/19 15:05 98 H 95 05/05/19 15:03 93 H 121/81 05/05/19 15:00 83 95 05/05/19 14:55 75 96 05/05/19 14:50 92 H 95 05/05/19 14:48 92 H 99/60 L 05/05/19 14:45 110 H 96 05/05/19 14:40 89 95 05/05/19 14:35 104 H 94 05/05/19 14:32 113 H 108/58 L 05/05/19 14:30 96 H 95 05/05/19 14:25 80 95 05/05/19 14:20 83 95 05/05/19 14:17 105 H 116/66 05/05/19 14:15 85 128/68 95 05/05/19 14:13 98 H 125/67 05/05/19 14:11 102 H 117/67 05/05/19 14:10 96 H 96 05/05/19 14:09 115 H 120/68 05/05/19 14:07 87 116/63 05/05/19 14:05 88 110/64 95 05/05/19 14:03 98 H 116/66 05/05/19 14:01 100 H 128/72 05/05/19 14:00 102 H 96 05/05/19 13:59 87 119/58 L 05/05/19 13:57 84 139/70 05/05/19 13:55 79 144/77 H 95 05/05/19 13:53 86 148/95 H 05/05/19 13:51 109 H 142/94 H 05/05/19 13:50 116 H 94 05/05/19 13:49 100 H 138/94 05/05/19 13:45 86 137/72 93 05/05/19 13:42 93 H 94 05/05/19 13:41 83 120/74 05/05/19 13:40 77 94 05/05/19 13:39 80 115/64 05/05/19 13:37 85 114/67 94 05/05/19 13:35 83 119/65 96 05/05/19 13:33 85 115/63 05/05/19 13:31 93 H 118/62 05/05/19 13:30 88 94 05/05/19 13:29 88 116/67 05/05/19 13:27 77 117/68 05/05/19 13:25 87 127/73 92 05/05/19 13:23 78 118/66 05/05/19 13:22 85 94 05/05/19 13:21 88 120/64 05/05/19 13:20 90 94 05/05/19 13:19 86 124/61 05/05/19 13:17 94 H 119/61 94 05/05/19 13:15 89 119/58 L 95 05/05/19 13:13 81 128/58 L 05/05/19 13:12 86 94 05/05/19 13:11 86 128/71 05/05/19 13:10 83 95 05/05/19 13:09 79 131/76 05/05/19 13:05 83 94 05/05/19 13:04 83 94 05/05/19 12:59 90 97 05/05/19 12:58 78 94 05/05/19 12:54 80 95 05/05/19 12:53 77 115/67 05/05/19 12:50 81 94 05/05/19 12:49 73 96 05/05/19 12:48 80 117/77 05/05/19 12:44 87 96 05/05/19 12:40 84 94 05/05/19 12:39 89 95 05/05/19 12:34 82 96 05/05/19 12:33 82 134/96 05/05/19 12:29 94 H 97 05/05/19 12:28 105 H 110/64 05/05/19 12:24 80 117/68 96 05/05/19 12:19 86 96 05/05/19 12:18 80 109/59 L 05/05/19 12:14 79 96 05/05/19 12:12 81 115/57 L 05/05/19 12:10 36.9 C 82 20 115/61 05/05/19 12:09 89 95 05/05/19 12:08 82 109/57 L 05/05/19 12:06 96 H 109/62 05/05/19 12:04 87 111/58 L 96 05/05/19 12:02 80 109/60 05/05/19 12:00 86 114/66 05/05/19 11:59 83 97 05/05/19 11:58 83 113/55 L 05/05/19 11:56 84 116/61 94 05/05/19 11:54 78 128/80 96 05/05/19 11:52 88 136/75 05/05/19 11:49 103 H 97 05/05/19 11:44 93 H 89 L 05/05/19 11:19 78 120/70 05/05/19 10:08 69 123/60 05/05/19 09:02 83 128/81 05/05/19 07:50 86 132/76 05/05/19 07:43 36.6 C 86 20 132/76 05/04/19 20:25 81 127/62 Pain Intensity Bilateral Abdomen: Pain Intensity: 6 Transfer of Care Handoff Completed per policy Notes Mental Status: alert / awake / arousable and participated in evaluation Patient Amnestic to Procedure: Yes Nausea / Vomiting: adequately controlled Pain: adequately controlled Airway Patency, RR, SpO2: stable & adequate BP & HR: stable & adequate Hydration State: stable & adequate Neuraxial Anesthesia: was administered and sensory block is resolving Anesthetic Complications: no major complications apparent and Pt Satisfied with anesthetic care
[2019-05-05 19:29] LABS: Base Excess Cord Arterial Bld -2.3 mEq/L (-9-1.8); CO2 Cord Arterial Blood 44 mmHg (39.1-73.5); HCO3 Cord Arterial Blood 24 mmol/L (19.7-28.5); PO2 Cord Arterial Blood 20.3 % (4.1-31.7); pH Cord Arterial Blood 7.35 (7.1-7.38)
[2019-05-05 19:30] LABS: Oxygen Sat Cord Arterial Blood < 60.0 % (<60)
[2019-05-05] MEDS: DOCUSATE SODIUM 100 MG CAP PO SCH (21:01)
[2019-05-06] MEDS: IBUPROFEN 600 MG TAB PO PRN ×3 (03:03→17:06)
--- NOTE | 2019-05-06 06:40 | Obstetrical Progress Note ---
Date of Service <Enoch Howard DO - Last Filed: 05/06/19 06:40> May 06, 2019 Assessment & Plan <DO Opal Siegel Last Filed: 05/06/19 06:40> (1) : -PPD#1 -Vitals reviewed, WNL (Tmax 37.1) - GBS -, Blood Type A+ - Clinically stable. - Feels well today. Eating well, voiding well, ambulating well. - Pain well controlled. - Routine post- care - After discharge will have [address] Martinez Day #:: 1 Subjective <Enoch Howard DO - Last Filed: 05/06/19 06:40> Ambulation: ambulating normally Voiding: no voiding problems Passing Gas:: Yes Diet Tolerance:: regular diet Lochia:: Moderate Feeding Type:: breast feeding Current Pain Level(1-10): 0 Patient is a 29 PPD#1. Patient states that she is feeling well today and that her pain is well controlled. She has no other complaints at this time. Constitutional: no fever and no chills Respiratory: no cough, no dyspnea and no wheezing Cardiovascular: no chest pain, no dyspnea, no palpitations, no edema and no calf pain Breast: no breast pain Gastrointestinal: no abdominal pain, no nausea and no vomiting Genitourinary (female): no dysuria and no difficulty urinating Neurologic: no headache(s) Physical Exam <DO Opal Siegel Last Filed: 05/06/19 06:40> Constitutional WD/WN, vitals as above Respiratory normal respiratory effort, lungs clear to auscultation Cardiovascular Rate/Rhythm: regular rate and regular rhythm Heart Sounds: normal S1 and normal S2; no click, no gallop, no murmur and no cardiac rub Extremities: + edema (+1); no calf tenderness Gastrointestinal (Abdomen) Inspection/Auscultation: abdomen normal to inspection and normal bowel sounds Percussion/Palpation: abdomen soft; abdomen nontender Genitourinary OB Exam Abdomen: + fundal height Fundus: + firm and + relation to umbilicus (2cm below); not tender and not boggy Results & Data <Enoch Moranedna DO Joseph Last Filed: 05/06/19 06:40> Vital Signs (Past 12 Hours) Vital Signs Temp Pulse Resp BP 05/06/19 03:55 36.9 C 75 18 127/76 05/05/19 23:35 37.2 C 82 18 118/69 05/05/19 22:15 37.1 C 87 18 118/66 05/05/19 21:32 87 118/66 05/05/19 21:03 85 110/58 L 05/05/19 20:33 91 H 127/61 05/05/19 20:05 18 05/05/19 20:03 86 122/72 05/05/19 19:48 88 120/74 05/05/19 19:33 73 118/70 05/05/19 19:19 83 118/67 05/05/19 19:05 37.1 C 18 05/05/19 19:04 88 129/58 L 05/05/19 18:48 88 125/62 05/05/19 18:44 88 124/61 <Emily Martinez MD, FACOG - Last Filed: 05/06/19 07:51> Co-Signing Physician Notes Resident Physician Supervision Note: I was present with Dr. Howard during the history and exam. I discussed the case with the resident and agree with the findings and plan as documented in the note. Any exceptions or clarifications are listed here: [None] Documented By: Emily Martinez MD, FACOG Resident Activity Tracking <Enoch Howard DO - Last Filed: 05/06/19 06:40> Resident Involvement: Resident Care Provided Care Provided: OB Delivery
[2019-05-06 07:11] LABS: Hemoglobin 11.5 g/dL (12.0-16.0); Mean Corpuscular Hemoglobin 29.9 pg (25-34); Mean Corpuscular Hgb Conc 33.8 g/dL (32-36); Mean Corpuscular Volume 88.3 fL (80-100); Mean Platelet Volume 10.1 fL (7.4-10.4); Platelet Count 149 K/uL (130-400); RDW Coefficient of Variation 13.1 % (11.5-14.5); RDW Standard Deviation 42.2 fL (36.4-46.3); Red Blood Count 3.85 M/uL (4.2-5.4); White Blood Count 9.05 K/uL (4.8-10.8)
[2019-05-06] MEDS: PRENATAL VITAMIN 1 TAB PO SCH (08:19)
[2019-05-06] MEDS: DOCUSATE SODIUM 100 MG CAP PO SCH ×2 (08:19→21:00)
[2019-05-06] MEDS ORDERED: NON-FORMULARY MEDICATION (Prenat.Vits,Cal,Min-Iron-Folic 1 TAB) PO SCH (09:00)
[2019-05-06] MEDS ORDERED: BISACODYL 5 MG TABEC PO SCH (20:00)
[2019-05-07 06:24] LABS: Hematocrit (blood only) 33.3 % (37-47); Hemoglobin 11.5 g/dL (12.0-16.0)
[2019-05-07] MEDS: PRENATAL VITAMIN 1 TAB PO SCH (08:15)
[2019-05-07] MEDS: DOCUSATE SODIUM 100 MG CAP PO SCH (08:15)
--- NOTE | 2019-05-07 08:28 | Obstetrical Progress Note ---
Date of Service May 07, 2019 Assessment & Plan (1) Encounter for care and examination after delivery: continue current care plan BP's have normalized without medications D/C to home- BP check in 1 week. Subjective Ambulation: ambulating normally Voiding: no voiding problems Passing Gas:: Yes Diet Tolerance:: regular diet Lochia:: Small Feeding Type:: breast feeding Physical Exam Constitutional WD/WN, vitals as above Psychiatric A+Ox3, euthymic affect Genitourinary OB Exam Abdomen: + fundal height Fundus: + firm and + relation to umbilicus (3 below ); not tender Results & Data Vital Signs (Past 12 Hours) Vital Signs Temp Pulse Resp BP Pulse Ox 05/07/19 07:30 97.9 F 71 16 128/78 95 05/06/19 23:25 97.9 F 69 18 131/81 05/06/19 21:20 97.9 F 73 18 134/80
== END 2019-05-07 13:22 | disposition home or self-care (01) | DRG 807 ==
LOC: 4S1 07:31 → 4S2 21:45